=== PATIENT | male | born 1960 | race Caucasian/White ===

== ENCOUNTER → 2022-12-11 09:54 | Outpatient (BNVA) | payer BC, SELFPAY | PROVIDERS: PCP Family Medicine; Visit Provider Urology | DX: N43.3 Hydrocele, unspecified (principal) | CPT/HCPCS: 51798 ==

== ENCOUNTER 2023-05-19 08:02 | Outpatient (AMB) | payer OTHER, SELFPAY ==
--- NOTE | 2023-05-19 08:02 | MHC.OFFVIS ---
Intake Intake Visit Reasons: Surgery consult (patient canceled 02/09/23) Intake Note: Patient is present for Telephone Surgery Consultation. Urology Med: Tadalafil Antibiotic Allergy: None Blood Thinner: None [facility]acy: [facility] Allergies No Known Allergies Allergy (Verified 05/19/23 08:03) HPI HPI Comments History of Present Illness Details Donnie is a pleasant male. He is a patient of . He is seen for the following urologic conditions - hydrocele Telemedicine Evaluation 15 min Consultation [employer] Marisela Video attempted Discussed right hydrocele repair Hydrocele Large right hydrocele Has been present for number of years Interfering with crossing his legs amongst other activities Recommendation for hydrocelectomy with drain PFSH Medical History Asthma BPH loc w urin obs/LUTS GERD (gastroesophageal reflux disease) H/O urinary frequency Hydrocele Lung cancer Sleep apnea Surgical History History of back surgery History of cholecystectomy History of hernia repair S/P thoracotomy Review of Systems Const All systems reviewed & are unremarkable except as noted in HPI and below Reports no additional complaints Resp Reports no additional complaints GI Reports no additional complaints Reports as per HPI Musc Reports no additional complaints Physical Exam Telemedicine evaluation Appropriate responses Regular breathing rate and rhythm HEENT Head: Yes normal to inspection Ears: hearing grossly normal bilaterally Eyes General: appearance normal, both eyes and all related structures Neck Neck: Yes normal visual inspection Chest Chest palpation & inspection: normal inspection of the chest Resp Effort & Inspection: normal respiratory effort and able to speak in complete sentences Assessment & Plan Assessment & Plan (1) Hydrocele: Code(s): N43.3 - Hydrocele, unspecified (2) BPH loc w urin obs/LUTS: Code(s): N40.1 - Benign prostatic hyperplasia with lower urinary tract symptoms Plan Risks, benefits and alternatives to therapy were discussed. These include but are not limited to infection, bleeding, damage to local organs and tissues, need for further interventions. Anesthetic risks regarding cardiac arrhythmia, blood clots, and potential mortality were discussed. The patient understands the typical recovery time and the outpatient nature of the procedure. After consideration of these risks the patient gives full informed consent and they wish to move ahead with the procedure. Patient Instructions: Imaging studies, laboratory and physical exam results were discussed and reviewed in detail. No major barriers to patient understanding were identified. An opportunity to ask questions regarding the treatment plan was provided. All questions were answered. The patient expressed understanding and agreement with the above treatment plan. The patient is aware they should contact our office by phone for worsening of their current condition or the appearance of new urologic symptoms. Compliance is encouraged with any medications and followup testing that is ordered. It is a privilege to participate in the urologic care of your patient. If you have any questions or concerns regarding treatment for the above conditions, or other urologic issues, please do not hesitate to contact me. The office telephone contact is [phone]. This note is constructed using voice recognition software. While every effort has been made to ensure accuracy rail operator errors may have been included. Yours sincerely, Dr Delano West MD, [facility] - Urology Providers of Expert, Compassionate Care for the Genitourinary System Telehealth Telehealth Location of provider rendering services: practice address Location of patient: address on file Patient Identification confirmed using: Name, : Yes Telehealth method: voice only Patient verbally consented to treatment: Yes Patient verbally consented to billing insurance company: Yes Patient informed of any privacy concerns related to visit: Yes Coding Level of Care Code Tele Est Pt Level 4 (08953) Diagnoses Hydrocele N43.3 BPH loc w urin obs/LUTS N40.1
--- OUTSIDE RECORDS SUMMARY | 2023-05-19 08:04 | XMS_ITS | Continuity of Care Document ---
Author Name Unknown Organization [facility] Pulmonary M edicine Address [address] [place] [address]- Care Team Providers Care Electron Microprobe Operator Name Role Phone Dasha Cr DO Primary Care Physician [place] [facility] [place]22 [facility] [address] [place] [id number] Medications Align = 4 mg, By Mouth, Daily, 0 Refills, Maintenance, 11/10/22 11:36:00 EST, Partial fill upon patient request if the prescription is for a schedule II opioid drug. Start Date: 11/10/22 Status: Ordered Align = 4 mg, By Mouth, Daily, 0 Refills, Maintenance, 11/10/22 11:36:00 EST, Partial fill upon patient request if the prescription is for a schedule II opioid drug. Start Date: 11/10/22 Status: Ordered azelastine 137 mcg/inh (0.1%) nasal spray 2 sprays, Nares, Both, 2 times a day, j45.40, # 1 each, 6 Refills, Maintenance, 11/28/22 11:34:00 EST, [facility]/pharmacy #[id number], Partial fill upon patient request if the prescription is for a schedule II opioid drug., 2 sprays Nares, Both 2 times a day,Inst... Start Date: 11/28/22 Status: Ordered Azelastine Nasal 2 times a day, 0 Refills, Maintenance, 11/10/22 11:30:00 EST, Partial fill upon patient request if the prescription is for a schedule II opioid drug. Start Date: 11/10/22 Status: Ordered budesonide-formoterol 160 mcg-4.5 mcg/inh inhalation aerosol with adapter 2, puffs, Inhalation, 2 times a day, j45.40, # 1 each, Refills 6, Tot. Refills 6, Maintenance, 11/28/22 11:34:00 EST, Inhaler, Route to Pharmacy Electronically, [id number], [facility]/pharmacy #[id number] Start Date: 11/28/22 Status: Ordered fluticasone propionate = 50 mcg, Inhalation, 0 Refills, Maintenance, 11/10/22 11:29:00 EST, Partial fill upon patient request if the prescription is for a schedule II opioid drug. Start Date: 11/10/22 Status: Ordered ipratropium nasal 21 mcg/inh spray 2 sprays, Nares, Both, 2 times a day, # 30 mL, 5 Refills, Maintenance, 11/11/23 18:39:00 EST, [place] [address] ([facility]), Partial fill upon patient request if the prescription is for a schedule II opioid drug., 2 sprays Nares, Both 2 time... Start Date: 11/11/23 Status: Ordered ipratropium nasal 21 mcg/inh spray 2 sprays, Nares, Both, 2 times a day, # 30 mL, 3 Refills, Acute 11/11/23 18:39:00 EST, 11/10/22 18:39:00 EST, [place], Partial fill upon patient request if the prescription is for a schedule II opioid drug. Start Date: 11/10/22 Stop Date: 11/11/23 Status: Ordered metaxalone 400 mg oral tablet 2 tablet = 800 mg, By Mouth, 0 Refills, Maintenance, 11/10/22 11:26:00 EST, Partial fill upon patient request if the prescription is for a schedule II opioid drug. Start Date: 11/10/22 Status: Ordered PredniSONE = 10 mg, By Mouth, Daily, 0 Refills, Maintenance, 11/10/22 11:27:00 EST, Partial fill upon patient request if the prescription is for a schedule II opioid drug. Start Date: 11/10/22 Status: Ordered psyllium - oral capsule 0.4, 0 Refills, Maintenance, 11/10/22 11:35:00 EST, Partial fill upon patient request if the prescription is for a schedule II opioid drug. Start Date: 11/10/22 Status: Ordered Vitamin C By Mouth, Daily, 0 Refills, Maintenance, 11/10/22 11:37:00 EST, Partial fill upon patient request if the prescription is for a schedule II opioid drug. Start Date: 11/10/22 Status: Ordered Patient Care team information Care Team Personnel Name: Dasha Cr DO Position: Reference Physician Member Role: PCP Address: Address: [address] [place], [place] [id number]- Care Team Related Persons Name: PACO GALE Address: [place] [address]
--- OUTSIDE RECORDS SUMMARY | 2023-05-19 08:04 | XMS_ITS | Continuity of Care Document ---
Author Name Unknown Organization [facility] Pulmonary M edicine Address [address] [place] [address]- Care Team Providers Care Case Making Machine Operator Name Role Phone Dasha Cr DO Primary Care Physician [place] [facility] [place] 03/26/23 - 04/25/23 [facility] Pul[facility] Medicine [address] [place] [id number] Allergies, Adverse Reactions, Alerts Substance Reaction Severity Status aspirin Moderate Active Medications Albuterol (Eqv-Proventil HFA) 90 mcg/inh inhalation aerosol 0 Refills, Maintenance, 03/23/23 11:35:00 EDT, Partial fill upon patient request if the prescription is for a schedule II opioid drug. Start Date: 03/23/23 Status: Ordered Align = 4 mg, By [...] Both, 2 times a day, j45.40, # 3 each, 3 Refills, Maintenance, 04/20/23 12:06:00 EDT, [facility], Partial fill upon patient request if the prescription is for a schedule II opioid drug., 2 sprays Nares, Both 2 t... Start Date: 04/20/23 Status: Ordered Azelastine Nasal 2 times a day, 0 Refills, Maintenance, 11/10/22 11:30:00 EST, Partial fill upon patient request if the prescription is for a schedule II opioid drug. Start Date: 11/10/22 Status: Ordered budesonide 1 mg/2 mL inhalation suspension 0 Refills, Maintenance, 03/23/23 11:35:00 EDT, Partial fill upon patient request if the prescription is for a schedule II opioid drug. Start Date: 03/23/23 Status: Ordered budesonide-formoterol 160 mcg-4.5 mcg/inh inhalation aerosol with adapter 2, puffs, Inhalation, 2 times a day, j45.40, # 3 each, Refills 3, Tot. Refills 3, Maintenance, 04/20/23 12:06:00 EDT, Inhaler, Route to Pharmacy Electronically, [id number], [facility], 170.5, cm, ... Start Date: 04/20/23 Status: Ordered fluticasone propionate = 50 mcg, Inhalation, 0 Refills, Maintenance, 11/10/22 11:29:00 EST, Partial fill upon patient request if the prescription is for a schedule II opioid drug. Start Date: 11/10/22 Status: Ordered ipratropium nasal 21 mcg/inh spray 2 sprays, Nares, Both, 2 times a day, # 30 mL, 5 Refills, Maintenance, 11/11/23 18:39:00 EST, [place], [place] [address] ([facility]), Partial fill upon patient request if the prescription is for a schedule II opioid drug., 2 sprays Nares, Both 2 time... Start Date: 11/11/23 Status: Ordered ipratropium nasal 21 mcg/inh spray 2 sprays, Nares, Both, 2 times a day, # 30 mL, 3 Refills, Acute 11/11/23 18:39:00 EST, 11/10/22 18:39:00 EST, [place], Partial fill upon patient request if the [...] opioid drug. Start Date: 11/10/22 Status: Ordered Singulair 10 mg oral tablet 10 mg, 1, tablet, By Mouth, Daily, j45.909, # 90 tablet, Refills 3, Tot. Refills 3, Maintenance, 04/20/23 8:46:00 EDT, Route to Pharmacy Electronically, [facility], Partial fill upon patient request if the prescription is for a... Start Date: 04/20/23 Status: Ordered Vitamin C By Mouth, Daily, 0 Refills, Maintenance, 11/10/22 11:37:00 EST, Partial fill upon patient request if the prescription is for a schedule II opioid drug. Start Date: 11/10/22 Status: Ordered Patient Care team information Care Team Personnel Name: Dasha Cr DO Position: Reference Physician Member Role: PCP Address: Address: [address] [place] [address]- Care Team Related Persons Name: PACO GALE Address: home [address] [place] [address]
--- OUTSIDE RECORDS SUMMARY | 2023-05-19 08:04 | XMS_ITS | Continuity of Care Document ---
Author Name Unknown Organization [facility] Pulmonary M edicine Address [address] [place] [address]- Care Team Providers Care Solar Resource Assessor Name Role Phone Dasha Cr DO Primary Care Physician Encounter [facility] [place] Date(s): 09/04/22 - 01/02/23 [facility] Pulmonary Medicine [address] [place] [id number] Attending Physician: Eleuterio Cordova MD Admitting Physician: Eleuterio Cordova MD Referring Physician: Dasha Cr DO Medications Align = 4 mg, By Mouth, [...] each, 6 Refills, Maintenance, 11/28/22 11:34:00 EST, [facility]/pharmacy #[id number], Partial fill upon patient request if [...] 11:34:00 EST, Inhaler, Route to Pharmacy Electronically, [id number], [facility]/pharmacy #[id number] Start Date: 11/28/22 Status: Ordered fluticasone propionate = 50 mcg, Inhalation, 0 Refills, Maintenance, 11/10/22 11:29:00 EST, Partial fill upon patient request if the prescription is for a schedule II opioid drug. Start Date: 11/10/22 Status: Ordered ipratropium nasal 21 mcg/inh spray 2 sprays, Nares, Both, 2 times a day, # 30 mL, 5 Refills, Maintenance, 11/11/23 18:39:00 EST, [place] [address] ([facility] 827), Partial fill upon patient request if the prescription is for a schedule II opioid drug., 2 sprays Nares, Both 2 time... Start Date: 11/11/23 Status: Ordered ipratropium nasal 21 mcg/inh spray 2 sprays, Nares, Both, 2 times a day, # 30 mL, 3 Refills, Acute 11/11/23 18:39:00 EST, 11/10/22 18:39:00 EST, [place], Partial fill upon patient request if the [...] Reference Physician Member Role: PCP Address: Address: [address] [place] [address] [place] [address]- Care Team Related Persons Name: PACO GALE Address: [place] [address]
--- OUTSIDE RECORDS SUMMARY | 2023-05-19 08:04 | XMS_ITS | Continuity of Care Document ---
Author Name Unknown Organization [facility] Pulmonary M edicine Address [address] [place] [phone]- Care Team Providers Care Yard Motor Operator Name Role Phone Dasha Cr DO Primary Care Physician Encounter [facility] [place] Date(s): 01/13/23 - 02/12/23 [facility] Pulmonary Medicine [address] [place] [id number] Medications Align = 4 mg, By [...] times a day, j45.40, # 3 each, 1 Refills, Maintenance, 01/13/23 8:27:00 EDT, [facility], Partial fill upon patient request if the prescription is for aschedule II opioid drug., 2 sprays Nares, Both 2 ti... Start Date: 01/13/23 Status: Ordered Azelastine Nasal 2 times a day, 0 Refills, Maintenance, 11/10/22 11:30:00 EST, Partial fill upon patient request if the prescription is for a schedule II opioid drug. Start Date: 11/10/22 Status: Ordered budesonide-formoterol 160 mcg-4.5 mcg/inh inhalation aerosol with adapter 2, puffs, Inhalation, 2 times a day, j45.40, # 3 each, Refills 1, Tot. Refills 1, Maintenance, 01/13/23 8:26:00 EDT, Inhaler, Route to Pharmacy Electronically, [id number], [facility] Start Date: 01/13/23 Status: Ordered fluticasone propionate = 50 mcg, Inhalation, 0 Refills, Maintenance, 11/10/22 11:29:00 EST, Partial fill upon patient request if the prescription is for a schedule II opioid drug. Start Date: 11/10/22 Status: Ordered ipratropium nasal 21 mcg/inh spray 2 sprays, Nares, Both, 2 times a day, # 30 mL, 5 Refills, Maintenance, 11/11/23 18:39:00 EST, [place], [place] [address] ([facility]), Partial fill upon patient request if the prescription is for a schedule II opioid drug., 2 sprays Nares, Both 2 time... Start Date: 11/11/23 Status: Ordered ipratropium nasal 21 mcg/inh spray 2 sprays, Nares, Both, 2 times a day, # 30 mL, 3 Refills, Acute 11/11/23 18:39:00 EST, 11/10/22 18:39:00 EST, [place], Partial fill upon patient request if the [...] Reference Physician Member Role: PCP Address: Address: [address] [place] [address]- Care Team Related Persons Name: PACO GALE Address: [place] [id number]
--- OUTSIDE RECORDS SUMMARY | 2023-05-19 08:04 | XMS_ITS | Continuity of Care Document ---
Author Name Unknown Organization [facility] Pulmonary M edicine Address [address] [place] [address]- Care Team Providers Care Orthodontic Lab Technician Name Role Phone Dasha Cr DO Primary Care Physician En[place] [facility] [place] [id number] Date(s): 08/04/22 - 11/29/22 [facility] Pulmonary Medicine [address] [place] [address]- Attending Physician: Eleuterio Cordova MD Admitting Physician: Eleuterio Cordova MD Referring Physician: Not on Staff, Referring MD Medications Align = 4 mg, By Mouth, [...] each, 6 Refills, Maintenance, 11/28/22 11:34:00 EST, [facility]/pharmacy #[id number], Partial fill upon patient request [...] 11:34:00 EST, Inhaler, Route to Pharmacy Electronically, [id number], [facility]/pharmacy #[id number] Start Date: 11/28/22 Status: Ordered fluticasone propionate = 50 mcg, Inhalation, 0 Refills, Maintenance, 11/10/22 11:29:00 EST, Partial fill upon patient request if the prescription is for a schedule II opioid drug. Start Date: 11/10/22 Status: Ordered ipratropium nasal 21 mcg/inh spray 2 sprays, Nares, Both, 2 times a day, # 30 mL, 5 Refills, Maintenance, 11/11/23 18:39:00 EST, [place] [address] ([facility] 827), Partial fill upon patient request if the prescription is for a schedule II opioid drug., 2 sprays Nares, Both 2 time... Start Date: 11/11/23 Status: Ordered ipratropium nasal 21 mcg/inh spray 2 sprays, Nares, Both, 2 times a day, # 30 mL, 3 Refills, Acute 11/11/23 18:39:00 EST, 11/10/22 18:39:00 EST, [place], Partial fill upon patient request if the [...] Reference Physician Member Role: PCP Address: Address: [address] [place] [address] [place] [address]- Care Team Related Persons Name: PACO GALE Address: [place] [address]
--- OUTSIDE RECORDS SUMMARY | 2023-05-19 08:04 | XMS_ITS | Continuity of Care Document ---
Author Name Unknown Organization [facility] Pulmonary M edicine Address [address] [place] [address]- Care Team Providers Care Manager Application Name Role Phone Dasha Cr DO Primary Care Physician En[place] [facility] [place] Date(s): 03/31/23 - 04/30/23 [facility] Pulmonary Medicine [address] [place] [id number] Allergies, Adverse Reactions, Alerts Substance Reaction Severity [...] each, 3 Refills, Maintenance, 04/20/23 12:06:00 EDT, [facility], Partial fill upon patient request [...] 12:06:00 EDT, Inhaler, Route to Pharmacy Electronically, [id number], [facility], 170.5, cm, ... Start Date: 04/20/23 Status: Ordered fluticasone propionate = 50 mcg, Inhalation, 0 Refills, Maintenance, 11/10/22 11:29:00 EST, Partial fill upon patient request if the prescription is for a schedule II opioid drug. Start Date: 11/10/22 Status: Ordered ipratropium nasal 21 mcg/inh spray 2 sprays, Nares, Both, 2 times a day, # 30 mL, 5 Refills, Maintenance, 11/11/23 18:39:00 EST, [place], [place] [address] ([facility]), Partial fill upon patient request if the prescription is for a schedule II opioid drug., 2 sprays Nares, Both 2 time... Start Date: 11/11/23 Status: Ordered ipratropium nasal 21 mcg/inh spray 2 sprays, Nares, Both, 2 times a day, # 30 mL, 3 Refills, Acute 11/11/23 18:39:00 EST, 11/10/22 18:39:00 EST, [place], Partial fill upon patient request if the [...] 04/20/23 8:46:00 EDT, Route to Pharmacy Electronically, [facility], Partial fill upon patient [...] Reference Physician Member Role: PCP Address: Address: [address] [place] [address]- Care Team Related Persons Name: PACO GALE Address: home [address] [place] [address]
--- OUTSIDE RECORDS SUMMARY | 2023-05-19 08:04 | XMS_ITS | Continuity of Care Document ---
Author Name Unknown Organization [facility] Pulmonary M edicine Address [address] [place] [address]- Care Team Providers Care Mill Platform Supervisor Name Role Phone Dasha Cr DO Primary Care Physician [phone] [place] [facility] [place](s): 08/04/22 - 09/03/22 [facility] Pul[facility] Medicine [address] [place] [address]- Patient Care team information Care Team Personnel Name: Dasha Cr DO Position: Reference Physician Member Role: PCP Address: Address: [address] [place], [place] [address] [address]- Care Team Related Persons Name: PACO GALE Address: [place] [address]
--- OUTSIDE RECORDS SUMMARY | 2023-05-19 08:04 | XMS_ITS | Continuity of Care Document ---
Author Name Unknown Organization [facility] Pulmonary M edicine Address [address] [place] [address]- Care Team Providers Care College Admissions Counselor Name Role Phone Dasha Cr DO Primary Care Physician [place] [facility] [place](s): 03/25/23 - 04/24/23 [facility] Pulmonary Medicine [address] [place] [id number] Allergies, Adverse Reactions, Alerts Substance [...] each, 3 Refills, Maintenance, 04/20/23 12:06:00 EDT, [facility], Partial fill upon patient request [...] 12:06:00 EDT, Inhaler, Route to Pharmacy Electronically, [id number], [facility], 170.5, cm, ... Start [...] mL, 5 Refills, Maintenance, 11/11/23 18:39:00 EST, [place], [place] [address] ([facility]), Partial fill upon patient request if the prescription is for a schedule II opioid drug., 2 sprays Nares, Both 2 time... Start Date: 11/11/23 Status: Ordered ipratropium nasal 21 mcg/inh spray 2 sprays, Nares, Both, 2 times a day, # 30 mL, 3 Refills, Acute 11/11/23 18:39:00 EST, 11/10/22 18:39:00 EST, [place], Partial fill upon patient request if the [...] 04/20/23 8:46:00 EDT, Route to Pharmacy Electronically, [facility], Partial fill upon patient [...] Physician Member Role: PCP Address: Address: [address] [place] [address]- Care Team Related Persons Name: PACO GALE Address: home [address] [place] [address]
--- OUTSIDE RECORDS SUMMARY | 2023-05-19 08:04 | XMS_ITS | Continuity of Care Document ---
Author Name Unknown Organization [facility] Pulmonary M edicine Address [address] [place] [address]- Care Team Providers Care Circulation Analyst Name Role Phone Dasha Cr DO Primary Care Physician [place] [facility] [place] 11/28/22 - 12/28/22 [facility] Pulmonary Medicine [address] [place] [id number] Medications Align = 4 mg, By [...] each, 6 Refills, Maintenance, 11/28/22 11:34:00 EST, [facility]/pharmacy #[id number], Partial fill upon patient request [...] 11:34:00 EST, Inhaler, Route to Pharmacy Electronically, [id number], [facility]/pharmacy #[id number] Start Date: 11/28/22 Status: Ordered fluticasone propionate = 50 mcg, Inhalation, 0 Refills, Maintenance, 11/10/22 11:29:00 EST, Partial fill upon patient request if the prescription is for a schedule II opioid drug. Start Date: 11/10/22 Status: Ordered ipratropium nasal 21 mcg/inh spray 2 sprays, Nares, Both, 2 times a day, # 30 mL, 5 Refills, Maintenance, 11/11/23 18:39:00 EST, [place], [place] [address] ([facility]), Partial fill upon patient request if the prescription is for a schedule II opioid drug., 2 sprays Nares, Both 2 time... Start Date: 11/11/23 Status: Ordered ipratropium nasal 21 mcg/inh spray 2 sprays, Nares, Both, 2 times a day, # 30 mL, 3 Refills, Acute 11/11/23 18:39:00 EST, 11/10/22 18:39:00 EST, [place], Partial fill upon patient request if the [...] Reference Physician Member Role: PCP Address: Address: [address] [place], [place] [address]- Care Team Related Persons Name: PACO GALE Address: [place] [address]
== END 2023-05-19 09:20 | disposition home or self-care (01) ==
LOC: HO.HUSH 08:02
PROVIDERS: PCP Family Medicine; Visit Provider Urology
DX: N43.3 Hydrocele, unspecified (principal); N40.1 Benign prostatic hyperplasia with lower urinary tract symptoms
CPT/HCPCS: 99442

== ENCOUNTER → 2023-05-19 08:02 | Outpatient (BNVA) | payer OTHER, SELFPAY | PROVIDERS: PCP Family Medicine; Visit Provider Urology ==

== ENCOUNTER → 2023-08-18 12:03 | Outpatient (BNVA) | payer OTHER, SELFPAY | PROVIDERS: PCP Family Medicine; Visit Provider Urology ==

== ENCOUNTER 2023-11-06 13:46 | Outpatient (AMB) | payer OTHER, SELFPAY ==
--- NOTE | 2023-11-06 13:48 | MHC.OFFVIS ---
Intake Intake Visit Reasons: H&P (11/16) Intake Note: Patient is present for Telephone H&P Allergies No Known Allergies Allergy (Verified 05/19/23 08:03) HPI HPI Comments History of Present Illness Details Donnie is a pleasant male. He is a patient of . He is seen for the following urologic conditions - hydrocele Telemedicine Evaluation 15 min Consultation Doximity Marisela Video attempted Plan for right hydrocele with questions answered Discussed right hydrocele repair Hydrocele Large right hydrocele Has been present for number of years Interfering with crossing his legs amongst other activities Recommendation for hydrocelectomy with drain PFSH Medical History Sleep apnea GERD (gastroesophageal reflux disease) Asthma Lung cancer Hydrocele H/O urinary frequency BPH loc w urin obs/LUTS Surgical History S/P thoracotomy History of cholecystectomy History of hernia repair History of back surgery Review of Systems Const All systems reviewed & are unremarkable except as noted in HPI and below Reports no additional complaints Resp Reports no additional complaints GI Reports no additional complaints Reports as per HPI Musc Reports no additional complaints Physical Exam Telemedicine evaluation Appropriate responses Regular breathing rate and rhythm HEENT Head: Yes normal to inspection Ears: hearing grossly normal bilaterally Eyes General: appearance normal, both eyes and all related structures Neck Neck: Yes normal visual inspection Chest Chest palpation & inspection: normal inspection of the chest Resp Effort & Inspection: normal respiratory effort and able to speak in complete sentences Assessment & Plan Assessment & Plan (1) BPH loc w urin obs/LUTS: Code(s): N40.1 - Benign prostatic hyperplasia with lower urinary tract symptoms (2) Hydrocele: Code(s): N43.3 - Hydrocele, unspecified Plan Risks, benefits and alternatives to therapy were discussed. These include but are not limited to infection, bleeding, damage to local organs and tissues, need for further interventions. Anesthetic risks regarding cardiac arrhythmia, blood clots, and potential mortality were discussed. The patient understands the typical recovery time and the outpatient nature of the procedure. After consideration of these risks the patient gives full informed consent and they wish to move ahead with the procedure. right hydrocelecotomy Patient Instructions: Imaging studies, laboratory and physical exam results were discussed and reviewed in detail. No major barriers to patient understanding were identified. An opportunity to ask questions regarding the treatment plan was provided. All questions were answered. The patient expressed understanding and agreement with the above treatment plan. The patient is aware they should contact our office by phone for worsening of their current condition or the appearance of new urologic symptoms. Compliance is encouraged with any medications and followup testing that is ordered. It is a privilege to participate in the urologic care of your patient. If you have any questions or concerns regarding treatment for the above conditions, or other urologic issues, please do not hesitate to contact me. The office telephone contact is [phone]. This note is constructed using voice recognition software. While every effort has been made to ensure accuracy lining stitcher errors may have been included. Yours sincerely, Dr Delano West MD, [facility] - Urology Providers of Expert, Compassionate Care for the Genitourinary System Telehealth Telehealth Location of provider rendering services: practice address Location of patient: address on file Patient Identification confirmed using: Name, : Yes Telehealth method: voice only Patient verbally consented to treatment: Yes Patient verbally consented to billing insurance company: Yes Patient informed of any privacy concerns related to visit: Yes Coding Level of Care Code Tele Est Pt Level 4 ([address]) Diagnoses BPH loc w urin obs/LUTS N40.1 Hydrocele N43.3
--- OUTSIDE RECORDS SUMMARY | 2023-11-06 13:48 | XMS_ITS | Continuity of Care Document ---
Author Name Unknown Organization [facility] Pulmonary M edicine Address [address] [place] [id number]- Care Team Providers Care Fire Safety Director Name Role Phone Dasha Cr DO Primary Care Physician [place] [facility] [place] 09[place]/23 [facility] Pulmonary Medicine [address] [place] [id number] Allergies, Adverse Reactions, Alerts Substance Reaction Severity [...] each, 3 Refills, Maintenance, 04/20/23 12:06:00 EDT, [facility], Partial fill upon patient [...] 12:06:00 EDT, Inhaler, Route to Pharmacy Electronically, [id number], [facility], 170.5, cm, ... Start Date: 04/20/23 Status: Ordered Dupixent Pre-filled Pen 300 mg/2 mL subcutaneous solution = 600 mg, Subcutaneous Injection, Once, LOADING DOSE, # 4 mL, 0 Refills, Soft Stop, 07/23/23 10:18:00 EDT, Solution, Partial fill upon patient request if the prescription is for a schedule II opioid drug., 170.5, cm, 07/17/23 14:03:00 EDT, Height Start Date: 07/23/23 Status: Ordered Dupixent Pre-filled Pen 300 mg/2 mL subcutaneous solution = 300 mg, Subcutaneous Infusion, Every 14 days, MAINTENANCE DOSE, # 2 each, 11 Refills, Soft Stop, 07/23/23 10:18:00 EDT, Partial fill upon patient request if the prescription is for a schedule II opioid drug., 170.5, cm, 07/17/23 14:03:00 EDT, Height Start Date: 07/23/23 Status: Ordered ipratropium nasal 21 mcg/inh spray 2 sprays, Nares, Both, 2 times a day, # 30 mL, 5 Refills, Maintenance, 11/11/23 18:39:00 EST, [place], [place] [address] ([facility] 827), Partial fill upon patient request if the prescription is for a schedule II opioid drug., 2 sprays Nares, Both 2 time... Start Date: 11/11/23 Status: Ordered omeprazole 40 mg oral enteric coated capsule 1 capsule = 40 mg, By Mouth, Daily, # 90 capsule, 3 Refills, Maintenance, 07/17/23 15:00:00 EDT, ECCapsule, [facility]/pharmacy #[id number], Partial fill upon patient request if the prescription is for a schedule II opioid drug., 170.5, cm, 07/17/23 14:03:00 EDT,... Start Date: 07/17/23 Stop Date: 07/11/24 Status: Ordered psyllium - oral capsule 0.4, 0 Refills, Maintenance, 11/10/22 11:35:00 EST, Partial fill upon patient request if the prescription is for a schedule II opioid drug. Start Date: 11/10/22 Status: Ordered Singulair 10 mg oral tablet 10 mg, 1, tablet, By Mouth, Daily, [id number], # 90 tablet, Refills 3, Tot. Refills 3, Maintenance, 04/20/23 8:46:00 EDT, Route to Pharmacy Electronically, [facility], Partial fill upon patient request if the prescription is for a... Start Date: 04/20/23 Status: Ordered Vitamin C By Mouth, Daily, 0 Refills, Maintenance, 11/10/22 11:37:00 EST, Partial fill upon patient request if the prescription is for a schedule II opioid drug. Start Date: 11/10/22 Status: Ordered Social History Social History Type Response Smoking Status Never (less than 100 in lifetime) entered on: 07/17/23 Sex Patient Care team information Care Team Personnel Name: Dasha Cr DO Position: Reference Physician Member Role: PCP Address: Address: [address] [place] [id number]- Care Team Related Persons Name: GALEPACO Address: home [address] [place] [address]
--- OUTSIDE RECORDS SUMMARY | 2023-11-06 13:48 | XMS_ITS | Continuity of Care Document ---
Author Name Unknown Organization [facility] Pulmonary M edicine Address [address] [place] [id number]- Care Team Providers Care Entry Level Financial Analyst Name Role Phone Dasha Cr DO Primary Care Physician [phone] [place] [facility] [place]23 - 08/19/23 [facility] Pulmonary Medicine [address] [place] [id number] Allergies, Adverse Reactions, Alerts Substance Reaction [...] each, 3 Refills, Maintenance, 04/20/23 12:06:00 EDT, [facility], Partial fill upon patient [...] 12:06:00 EDT, Inhaler, Route to Pharmacy Electronically, [id number], [facility], 170.5, cm, ... Start Date: 04/20/23 [...] mL, 5 Refills, Maintenance, 11/11/23 18:39:00 EST, [place], [place] [address] ([facility] 827), Partial fill upon patient request if the prescription is for a schedule II opioid drug., 2 sprays Nares, Both 2 time... Start Date: 11/11/23 Status: Ordered omeprazole 40 mg oral enteric coated capsule 1 capsule = 40 mg, By Mouth, Daily, # 90 capsule, 3 Refills, Maintenance, 07/17/23 15:00:00 EDT, ECCapsule, [facility]/pharmacy #[id number], Partial fill upon [...] 04/20/23 8:46:00 EDT, Route to Pharmacy Electronically, [facility], Partial fill upon patient [...] Reference Physician Member Role: PCP Address: Address: [address] [place] [address]- Care Team Related Persons Name: GALEPACO Address: home [address] [place] [address]
--- OUTSIDE RECORDS SUMMARY | 2023-11-06 13:48 | XMS_ITS | Continuity of Care Document ---
Author Name Unknown Organization [facility] Address [address] [place] [id number]- Care Team Providers Care Scraper Operator Name Role Phone Dasha Cr DO Primary Care Physician Encounter [facility] [place] [id number] Date(s): 08/18/23 - 09/17/[address] [id number] Attending Physician: Olinda Shannon Admitting Physician: Admtr, Ar8 Referring Physician: Admtr, Ar8 Allergies, Adverse Reactions, Alerts Substance Reaction Severity [...] each, 3 Refills, Maintenance, 04/20/23 12:06:00 EDT, [facility], Partial fill upon patient [...] 12:06:00 EDT, Inhaler, Route to Pharmacy Electronically, [id number], [facility], 170.5, cm, ... Start [...] mL, 5 Refills, Maintenance, 11/11/23 18:39:00 EST, [place], [facility] [address] ([facility] 827), Partial fill upon patient request if the prescription is for a schedule II opioid drug., 2 sprays Nares, Both 2 time... Start Date: 11/11/23 Status: Ordered omeprazole 40 mg oral enteric coated capsule 1 capsule = 40 mg, By Mouth, Daily, # 90 capsule, 3 Refills, Maintenance, 07/17/23 15:00:00 EDT, ECCapsule, [facility]/pharmacy #[id number], Partial fill upon patient request [...] 04/20/23 8:46:00 EDT, Route to Pharmacy Electronically, [facility], Partial fill upon [...] Reference Physician Member Role: PCP Address: Address: [address] [place] [address]- Care Team Related Persons Name: PACO GALE Address: home [address] [place] [address]
--- OUTSIDE RECORDS SUMMARY | 2023-11-06 13:49 | XMS_ITS | Continuity of Care Document ---
Author Name Unknown Organization [facility] Pulmonary M edicine Address [address] [place] [id number]- Care Team Providers Care Food Prep Worker Name Role Phone Dasha Cr DO Primary Care Physician [phone] [place] [facility] [place]23 [facility] Pulmonary Medicine [address] [place] [id number] Allergies, Adverse Reactions, Alerts Substance Reaction Severity [...] each, 3 Refills, Maintenance, 04/20/23 12:06:00 EDT, [facility], Partial fill upon patient request [...] 12:06:00 EDT, Inhaler, Route to Pharmacy Electronically, [id number], [facility], 170.5, cm, ... Start Date: 04/20/23 [...] mL, 5 Refills, Maintenance, 11/11/23 18:39:00 EST, [place], [place] [address] ([facility] 827), Partial fill upon patient request if the prescription is for a schedule II opioid drug., 2 sprays Nares, Both 2 time... Start Date: 11/11/23 Status: Ordered omeprazole 40 mg oral enteric coated capsule 1 capsule = 40 mg, By Mouth, Daily, # 90 capsule, 3 Refills, Maintenance, 07/17/23 15:00:00 EDT, ECCapsule, [facility]/pharmacy #[id number], Partial fill upon patient [...] 04/20/23 8:46:00 EDT, Route to Pharmacy Electronically, [facility], Partial fill upon patient request [...] Reference Physician Member Role: PCP Address: Address: [address] [place] [id number]- Care Team Related Persons Name: GALEPACO Address: [address] [place] [address]
== END 2023-11-06 14:56 | disposition home or self-care (01) ==
LOC: HO.HUSH 13:46
PROVIDERS: PCP Family Medicine; Visit Provider Urology
DX: N40.1 Benign prostatic hyperplasia with lower urinary tract symptoms (principal); N43.3 Hydrocele, unspecified
CPT/HCPCS: 99442

== ENCOUNTER → 2023-11-06 13:46 | Outpatient (BNVA) | payer OTHER, SELFPAY | PROVIDERS: PCP Family Medicine; Visit Provider Urology ==

== ENCOUNTER 2023-11-16 06:04 | Day surgery (SDC) | payer OTHER, SELFPAY ==
[2023-11-12 07:22] VITALS: BMI 24.4
--- NOTE | 2023-11-13 12:03 | HO.ANESPROP2 ---
Documented by User: Karla Arguelles NP 11/13/23 12:04 HPI - Anesthesia Eval Consult details Narrative: 63yo M for Right Hydrocele Repair ? Prednisone BID PMFSH Active Problems Active Problems: All Active Problems (Updated 12/11/22 @ 10:47 by Delano West MD) BPH loc w urin obs/LUTS (Acute) Hydrocele (Acute) Past Medical History Medical History Sleep apnea GERD (gastroesophageal reflux disease) Asthma Lung cancer Hydrocele H/O urinary frequency BPH loc w urin obs/LUTS Surgical History Surgical History (Updated 11/16/23 @ 06:15 by Yanna Gonzalez, KRISTINA) History of nasal surgery Hx of tonsillectomy S/P thoracotomy History of cholecystectomy History of hernia repair Social History Social History Patient Tobacco Use Status: Never used Tobacco Use of substances other than those prescribed or required for medical reasons: Yes Substance Use Type Other:: rare edible Substance Use Frequency: Occasionally Are you DNR?: No Advance Directives: No Advance Directives Information Provided: Yes Meds Allergies Allergy/AdvReac Type Severity Reaction Status Date / Time No Known Allergies Allergy Verified 11/16/23 06:15 Home Medications Medication Instructions Recorded Confirmed Last Taken Type azelastine 137 mcg (0.1 %) nasal intranasal 12/11/22 12/11/22 Unknown History spray aerosol budesonide-formoterol HFA 160 2 puff inhalation BID 12/11/22 12/11/22 11/16/23 05:15 History mcg-4.5 mcg/actuation aerosol inhaler (Symbicort) ipratropium bromide 21 mcg (0.03 intranasal 12/11/22 12/11/22 Unknown History %) nasal spray tadalafil 5 mg tablet 5 mg PO DAILY 12/11/22 12/11/22 Unknown History montelukast 10 mg tablet 10 mg PO DAILY 05/19/23 Unknown History albuterol sulfate 90 mcg/actuation 1 inh inhalation QID PRN Shortness 11/06/23 Unknown History aerosol inhaler Of Breath Or Wheezing omeprazole 40 mg capsule,delayed 40 mg PO DAILY 11/06/23 Unknown History release loratadine 10 mg tablet 10 mg PO DAILY 11/16/23 11/16/23 Unknown History Exam Height,Weight and Vital Signs: Height 5 ft 6 in Weight 68.492 kg Assessment and Plan Assessment Anesthesia Assessment: Chart Reviewed Documented by User: Frederick Saucedo MD 11/16/23 07:59 [facility] Past Medical History Medical History Sleep apnea GERD (gastroesophageal reflux disease) Asthma Lung cancer Hydrocele H/O urinary frequency BPH loc w urin obs/LUTS Family History Family history of problems with anesthesia: No Surgical History Surgical History (Updated 11/16/23 @ 06:15 by Yanna Gonzalez RN) History of nasal surgery Hx of tonsillectomy S/P thoracotomy History of cholecystectomy History of hernia repair History of Problems with Anesthesia: No Social History Social History Patient Tobacco Use Status: Never used Tobacco Use of substances other than those prescribed or required for medical reasons: Yes Substance Use Type Other:: rare edible Substance Use Frequency: Occasionally Are you DNR?: No Advance Directives: No Advance Directives Information Provided: Yes Meds Allergies Allergy/AdvReac Type Severity Reaction Status Date / Time No Known Allergies Allergy Verified 11/16/23 06:15 Home Medications Medication Instructions Recorded Confirmed Last Taken Type azelastine 137 mcg (0.1 %) nasal intranasal 12/11/22 12/11/22 Unknown History spray aerosol budesonide-formoterol HFA 160 2 puff inhalation BID 12/11/22 12/11/22 11/16/23 05:15 History mcg-4.5 mcg/actuation aerosol inhaler (Symbicort) ipratropium bromide 21 mcg (0.03 intranasal 12/11/22 12/11/22 Unknown History %) nasal spray tadalafil 5 mg tablet 5 mg PO DAILY 12/11/22 12/11/22 Unknown History montelukast 10 mg tablet 10 mg PO DAILY 05/19/23 Unknown History albuterol sulfate 90 mcg/actuation 1 inh inhalation QID PRN Shortness 11/06/23 Unknown History aerosol inhaler Of Breath Or Wheezing omeprazole 40 mg capsule,delayed 40 mg PO DAILY 11/06/23 Unknown History release loratadine 10 mg tablet 10 mg PO DAILY 11/16/23 11/16/23 Unknown History Exam Airway Mallampati Class: II TM Dist: <=3cm Neck ROM: Full Loose/Missing/Broken Teeth: No Heart: ok Lungs: ok Assessment and Plan Assessment Anesthesia Assessment: Anesthesia Plan Discussed Final Anesthetic Review Family History of Problems with Anesthesia: No History of Problems with Anesthesia: No NPO: Yes ASA Class: II Final Preanesthetic Review: No Changes in Pt Med Stat, Meds/Allgs Chart Reviewed, Consent Obtained/Reviewed and Anes Risks/Benef Reviewed Patient Risk: Low Procedure Risk: Low Anesthetic Plan Anesthetic Plan: GA and Agree w/ Assess. and Plan Disposition: Standard PACU
[2023-11-16 06:17] VITALS: BMI 24.9
[2023-11-16 06:22] VITALS: BP 140/76; PULSE 74; RESP 15; TEMP 37.2; O2SAT 99
[2023-11-16] MEDS: Lactated Ringers 1,000 ML 100 ML IVCONT (06:41)
--- NOTE | 2023-11-16 07:28 | MHC.SHP ---
Pre-Procedural Eval Section A - 24 Hr Update-Section A only Date of Service: 11/16/23 The patient is an INPATIENT: No Changes since office visit: No Cold of Flu in the past 2 weeks, No New Medical Problems, No Changes in Medication and No Patient answered all questions The patient has been examined within 24 hours of the surgical procedure. The History & Physical has been completed within 30 days and I have reviewed it.: No Section B - Complete if H&P > 30 days Chief Complaint: Hydrocele, unspecified Details of Present Illness: right hydrocele Relevant Social History: None Present Medications: see Short Stay Collaborative assessment Medical History: No relevant PMH History of Previous Operations: No relevant previous surgery Allergies: Allergies Allergy/AdvReac Type Severity Reaction Status Date / Time No Known Allergies Allergy Verified 11/16/23 06:15 Review of Systems Sugical H&P ROS: Negative: Constitution, Cardiovascular, Respiratory, Neurological, Psychiatric, Hem-Onc, Allergic/Immunologic, Gastrointestinal, Genitourinary, Musculoskeletal, Integumentary, Endocrine and Eyes/Ears/Nose/Throat Exam Surgical H&P Exam: Normal: HEENT, Normal: Heart, Normal: Lungs, Normal: Extremities, Normal: Abdomen, Normal: Skin and Normal: Neurological Plan Diagnosis/Plan: Unchanged (right hydrocelectomy) I have reviewed the history and physical and performed a pertinent physical examination on my patient. No changes have occurred unless specified. Time Spent With Patient Time: Total time managing care of this patient today ____ minutes.
[2023-11-16 08:40] VITALS: BP 114/81; PULSE 68; RESP 16; TEMP 36.7; O2SAT 98
--- NOTE | 2023-11-16 08:40 | W.PM.OPN ---
Operative Note Operative Note Date of Service: 11/16/23 Narrative: PreOperative Diagnosis: right hydrocele Post Operative Diagnosis: right complex hydrocele and spermatocele Procedure: Hydrocelectomy - modifer 22 - 100% loner than typical Surgeon: Dr Delano West Anesthesia: General Indications for procedure: right hydrocele with persistent discomfort Procedure: After informed consent was verified the patient was brought to the operating room and placed in a supine position. Anesthesia was administered per protocol. Patient was appropriately shaved and genitals were prepped and draped in sterile fashion. Safety pause time-out was performed. Antibiotics being given. Local anesthetic was infiltrated under the skin in a horizontal fashion on the scrotum. Skin incision was made using a blade through the subdermal layer. The tunica around the testicle was elevated and dissected free from surrounding tissue. The avascular plane around the tunica was entered and using a wet sponge blunt dissection was performed. Any small bleeding perforators were cauterized. The testicle was delivered out of the scrotum and opened in a longitudinal fashion.. Fluid was removed. The testicle sac was inverted. Excess thickened sac was dissected and removed using a Thunderbeat cautery instrument to minimize porst procedure bleeding. The hydrocele was found to be complex with a multiloculated spermatcele. Careful dissection was performed to separate the spermatocele from the cord structures taking 100% longer than typical (60 min). Skin edges of the tunica were cauterized carefully in order to try to minimize postprocedure hematoma. The testicle with resected sac was placed back into a dependent portion of the scrotum. Due to large drainage amount a merry drain was placed through the dependent portion of the scrotum Overlying skin fascia layer was closed with a running 3-0 Vicryl suture. Skin was closed with interrupted 4-0 chromic sutures. Soft fluff sponges were placed with mesh pants as dressing. Local anesthetic was placed in inguinal cord for post procedure pain relief. Patient tolerated procedure well was extubated in operating room transferred in stable condition to the recovery area Pathology: Hydrocele sac Drains: merry
[2023-11-16 08:45] VITALS: BP 119/73; PULSE 74; RESP 18; O2SAT 98
[2023-11-16 08:50] VITALS: BP 112/60; PULSE 67; RESP 18; O2SAT 96
[2023-11-16 08:55] VITALS: BP 116/70; PULSE 62; RESP 18; O2SAT 96
[2023-11-16] MEDS: oxyCODONE HCl Immed Release 5 MG TABLET 10 MG PO (08:57)
[2023-11-16 09:10] VITALS: BP 125/66; PULSE 61; RESP 18; TEMP 36.8; O2SAT 96
== END 2023-11-16 09:42 | disposition home or self-care (01) ==
PROVIDERS: PCP Family Medicine; Visit Provider Urology
PROC: (CPT 55060; principal; 2023-11-16 07:30)
DX: N43.2 Other hydrocele (principal); N40.1 Benign prostatic hyperplasia with lower urinary tract symptoms; Z85.118 Personal history of other malignant neoplasm of bronchus and lung
CPT/HCPCS: 55040; 88302; J0131; J0665; J0690; J1885; J2405; J2704; J3010

== ENCOUNTER → 2023-11-16 06:04 | Outpatient (BNV) | payer OTHER, SELFPAY | PROVIDERS: PCP Family Medicine; Visit Provider Urology | DX: N43.3 Hydrocele, unspecified (principal) | CPT/HCPCS: 55040 ==

== ENCOUNTER 2023-12-23 09:43 | Outpatient (AMB) | payer OTHER, SELFPAY ==
--- NOTE | 2023-12-23 10:13 | MHC.OFFVIS ---
Intake Intake Visit Reasons: S/P Hydrocelectomy follow up Intake Note: Patient presents today for a follow-up Meds- Tadalafil Allergies to Antibiotic- No Known Allergies Blood Thinner- None Post Void Residual:0ml Patient Symptoms: Patient stated he is not longer taking Tadalafil. Attendant Coin Operated Laundry Required: No Accompanied by: Self / Same As Patient Allergies No Known Allergies Allergy (Verified 12/23/23 10:14) HPI HPI Comments History of Present Illness Details Donnie is a pleasant male. He is a patient of . He is seen for the following urologic conditions - hydrocele Follow-up right hydrocele Four weeks Happy with current progress Six-month follow-up Hydrocele Large right hydrocele Has been present for number of years Interfering with crossing his legs amongst other activities Hydrocelectomy 11/11 [facility] Medical History Sleep apnea GERD (gastroesophageal reflux disease) Asthma Lung cancer Hydrocele H/O urinary frequency BPH loc w urin obs/LUTS Surgical History History of nasal surgery Hx of tonsillectomy S/P thoracotomy History of cholecystectomy History of hernia repair Social History Patient Tobacco Use Status: Never used Tobacco Review of Systems Const Denies chills and Denies fever(s) Card Reports no additional complaints and Denies syncope Resp Denies cough GI Denies abdominal pain and Denies heartburn Reports as per HPI and Denies change in libido Neuro Denies syncope Psych Denies change in libido Endo Denies change in libido Physical Exam Const General: cooperative, healthy appearing, comfortable and no acute distress Orientation/consciousness: patient oriented x3 HEENT Face and sinus: Yes normal facial exam Mouth: moist mucous membranes Neck Neck: Yes normal visual inspection, Yes full ROM and Yes trachea midline Chest Chest palpation & inspection: normal inspection of the chest Resp Effort & Inspection: normal respiratory effort, able to speak in complete sentences and no respiratory distress GI Inspection: Yes normal to inspection Back/Spine/Pelvis Cervical Spine: normal cervical lordosis Thoracic/Lumbar Spine: thoracic and lumbar spine normal to inspection Skin General skin exam: no rashes or lesions noted Neuro General: patient oriented x3, gait normal, tone normal and moves all extremities Extrem General: Yes normal to inspection and Yes capillary refill normal Office Procedures Post Void Residual Post Residual Void Post Void Residual (PVR): 0 [id number]-[id number] Void Residual by ultrasound Assessment & Plan Assessment & Plan (1) Hydrocele: Code(s): N43.3 - Hydrocele, unspecified (2) BPH loc w urin obs/LUTS: Code(s): N40.1 - Benign prostatic hyperplasia with lower urinary tract symptoms Plan P.r.n. follow-up Orders: Orders AMB Post Void Residual by ultrasound 12/23/23 R33.9 - Retention of urine, unspecified Patient Instructions: Imaging studies, laboratory and physical exam results were discussed and reviewed in detail. No major barriers to patient understanding were identified. An opportunity to ask questions regarding the treatment plan was provided. All questions were answered. The patient expressed understanding and agreement with the above treatment plan. The patient is aware they should contact our office by phone for worsening of their current condition or the appearance of new urologic symptoms. Compliance is encouraged with any medications and followup testing that is ordered. It is a privilege to participate in the urologic care of your patient. If you have any questions or concerns regarding treatment for the above conditions, or other urologic issues, please do not hesitate to contact me. The office telephone contact is [phone]. This note is constructed using voice recognition software. While every effort has been made to ensure accuracy foil stamp operator errors may have been included. Yours sincerely, Dr Delano West MD, [facility] - Urology Providers of Expert, Compassionate Care for the Genitourinary System Coding Level of Care Code Est Pt Level 3 (07487) Diagnoses Hydrocele N43.3 BPH loc w urin obs/LUTS N40.1 CPT Codes Post Residual Void - PVR CPT Code: 86160-Grvh Void Residual by ultrasound ([id number])
== END 2023-12-23 10:43 | disposition home or self-care (01) ==
PROVIDERS: PCP Family Medicine; Visit Provider Urology
DX: N43.3 Hydrocele, unspecified (principal); N40.1 Benign prostatic hyperplasia with lower urinary tract symptoms
CPT/HCPCS: 99024

== ENCOUNTER → 2023-12-23 09:43 | Outpatient (BNVA) | payer OTHER, SELFPAY | PROVIDERS: PCP Family Medicine; Visit Provider Urology | DX: Z09 Encounter for follow-up examination after completed treatment for conditions other than malignant neoplasm (principal); N40.1 Benign prostatic hyperplasia with lower urinary tract symptoms; N13.8 Other obstructive and reflux uropathy; Z87.438 Personal history of other diseases of male genital organs | CPT/HCPCS: 51798 ==